=== PATIENT | female | born 1995 ===

== ENCOUNTER → 2018-07-10 | Outpatient (CLI) | payer BC ==
[~2018-07-10] MED LIST: ETHI1TAB16 PO; NORG1TAB98 PO
== END ==
LOC: LAB 14:52
PROVIDERS: ATTEND Student in an Organized Health Care Education/Training Program
DX: N89.8 Other specified noninflammatory disorders of vagina (principal)
CPT/HCPCS: 87210; 87491; 87591

== ENCOUNTER 2018-08-24 17:20 | Emergency (ER) | payer BC ==
[~2018-08-24 17:20] MED LIST changes: +METR500T54 PO
[2018-08-24] MEDS ORDERED: ETHI1TAB49 (17:36)
--- NOTE | 2018-08-24 17:41 | ER Report ---
History and Physical Time Seen By MD: 17:38 Hx. of Stated Complaint: patient reports migrane symptoms up to an including loss of vision, nausea, and one episode of emesis. she also reports recent weight loss HPI/ROS CHIEF COMPLAINT: Headache HISTORY OF PRESENT ILLNESS: This is a 23-year-old female presents to the emerg ency department for a headache. Patient states that around 12 today she developed a left-sided headache, worst headache she's ever had, did cause nausea no vomiting. She also had some loss of vision briefly on the right side the visual changes have resolved, she does continue to have intermittent nausea. She states she had one "migraine headache" when she was in high school however nothing since then. No recent injuries. No fevers or chills. No chest pain or shortness of breath. No rashes. REVIEW OF SYSTEMS: Constitutional: No fever, no chills. Eyes: As above. ENT: No sore throat. Cardiovascular: No chest pain, no palpitations. Respiratory: No cough, no shortness of breath. Gastrointestinal: No abdominal pain, no vomiting. Genitourinary: No hematuria. Musculoskeletal: No back pain. Skin: No rashes. Neurological: As above. Allergies: Coded Allergies: cefprozil (Unverified Allergy, Unknown, 06/21/18) hives Home Meds Reported Medications Ethinyl Estradiol/Drospirenone (LORYNA 3 MG-0.02 MG TABLET) 1 Each Tablet 08/24/18 Discontinued Reported Medications Norgestimate-Ethinyl Estradiol (TRINESSA) 1 Each Tablet, 1 TAB PO QDAY 06/21/18 Discontinued Scripts Metronidazole (METRONIDAZOLE) 500 Mg Tablet, 500 MG PO BID for 7 Days, #14 TAB 0 Refills Prov:DARCIE COOPER DO 07/15/18 Ethinyl Estradiol/Drospirenone (GIANVI 3 MG-0.02 MG TABLET) 1 Each Tablet, 1 EACH PO DAILY for 30 Days, #1 PACK 12 Refills Prov:DARCIE COOPER DO 07/10/18 Past Medical/Surgical History The patient has a past medical surgical history of "1 migraine headache apparently 7 years ago". Reviewed Nurses Notes: Yes Smoking Status: Never Smoker Hx Substance Use Disorder: No Hx Alcohol Use: Yes Constitutional Vital Sign - Last 24 Hours 08/24/18 08/24/18 08/24/1808/24/18 17:28 17:29 17:50 18:20 Temp 98.5 Pulse 72 76 107 Resp 20 B/P (MAP) 134/96 134/96 (109) Pulse Ox 99 99 97 O2 Delivery Room Air 08/24/18 08/24/18 18:27 18:30 B/P (MAP) 110/72 (85) 110/74 (86) Physical Exam General Appearance: The patient is alert, has no immediate need for airway protection and no signs of toxicity. Eyes: Pupils equal and round no pallor or injection. EOMs intact. No nystagmus. ENT, Mouth: Mucous membranes are moist. Respiratory: There are no retractions, lungs are clear to auscultation. Cardiovascular: Regular rate and rhythm, no murmurs, clicks or rubs. Gastrointestinal: Abdomen is soft and non tender, no masses, bowel sounds normal. Neurological: Alert and oriented 4. Moving all extremities. Following all commands. No focal neuro deficits. Sensation intact. Skin: Warm and dry, no rashes. Musculoskeletal: Neck is supple non tender. Extremities are nontender, nonswollen and have full range of motion. DIFFERENTIAL DIAGNOSIS: After history and physical exam differential diagnosis was considered for headache including but not limited to subarachnoid hemorrhage, migraine headache, tension headache and infectious causes such as meningitis, pharyngitis and sinusitis. Medical Decision Making Data Points Result Diagram: 08/24/18 1824 08/24/18 1824 Laboratory Hematology Test 08/24/18 18:24 08/24/18 18:52 Red Blood Count 5.24 M/uL (4.17-5.56) Mean Corpuscular Volume 83.4 fL (80.0-96.0) Mean Corpuscular Hemoglobin 28.9 pg (26.0-33.0) Mean Corpuscular Hemoglobin Concent 34.6 g/dL (32.0-36.0) Red Cell Distribution Width 12.9 % (11.5-14.5) Mean Platelet Volume 8.3 fL (7.2-11.1) Neutrophils (%) (Auto) 75.8 % (39.4-72.5) Lymphocytes (%) (Auto) 18.4 % (17.6-49.6) Monocytes (%) (Auto) 4.8 % (4.1-12.4) Eosinophils (%) (Auto) 0.8 % (0.4-6.7) Basophils (%) (Auto) 0.2 % (0.3-1.4) Nucleated RBC Relative Count (auto) 0.0 /100WBC Neutrophils # (Auto) 10.3 K/uL (2.0-7.4) Lymphocytes # (Auto) 2.5 K/uL (1.3-3.6) Monocytes # (Auto) 0.7 K/uL (0.3-1.0) Eosinophils # (Auto) 0.1 K/uL (0.0-0.5) Basophils # (Auto) 0.0 K/uL (0.0-0.1) Nucleated RBC Absolute Count (auto) 0.00 K/uL Sodium Level 138 mmol/L (137-145) Potassium Level 3.8 mmol/L (3.5-5.0) Chloride Level 103 mmol/L (98-107) Carbon Dioxide Level 23 mmol/L (22-31) Blood Urea Nitrogen 15 mg/dl (7-18) Creatinine 0.80 mg/dl (0.52-1.04) Glomerular Filtration Rate Calc > 60.0 Random Glucose 84 mg/dl (75-110) Calcium Level 10.4 mg/dl (8.4-10.2) Total Bilirubin 0.4 mg/dl (0.2-1.3) Aspartate Amino Transf (AST/SGOT) 33 U/L (0-35) Alanine Aminotransferase (ALT/SGPT) 37 U/L (0-56) Alkaline Phosphatase 64 U/L (0-126) Total Protein 8.3 g/dl (6.3-8.2) Albumin 4.7 g/dl (3.5-5.0) Urine HCG, Qualitative Negative (NEGATIVE) Chemistry Test 08/24/18 18:24 08/24/18 18:52 White Blood Count 13.6 k/uL (4.5-11.0) Red Blood Count 5.24 M/uL (4.17-5.56) Hemoglobin 15.1 g/dL (12.0-16.0) Hematocrit 43.7 % (34.0-47.0) Mean Corpuscular Volume 83.4 fL (80.0-96.0) Mean Corpuscular Hemoglobin 28.9 pg (26.0-33.0) Mean Corpuscular Hemoglobin Concent 34.6 g/dL (32.0-36.0) Red Cell Distribution Width 12.9 % (11.5-14.5) Platelet Count 302 K/uL (150-450) Mean Platelet Volume 8.3 fL (7.2-11.1) Neutrophils (%) (Auto) 75.8 % (39.4-72.5) Lymphocytes (%) (Auto) 18.4 % (17.6-49.6) Monocytes (%) (Auto) 4.8 % (4.1-12.4) Eosinophils (%) (Auto) 0.8 % (0.4-6.7) Basophils (%) (Auto) 0.2 % (0.3-1.4) Nucleated RBC Relative Count (auto) 0.0 /100WBC Neutrophils # (Auto) 10.3 K/uL (2.0-7.4) Lymphocytes # (Auto) 2.5 K/uL (1.3-3.6) Monocytes # (Auto) 0.7 K/uL (0.3-1.0) Eosinophils # (Auto) 0.1 K/uL (0.0-0.5) Basophils # (Auto) 0.0 K/uL (0.0-0.1) Nucleated RBC Absolute Count (auto) 0.00 K/uL Glomerular Filtration Rate Calc > 60.0 Calcium Level 10.4 mg/dl (8.4-10.2) Total Bilirubin 0.4 mg/dl (0.2-1.3) Aspartate Amino Transf (AST/SGOT) 33 U/L (0-35) Alanine Aminotransferase (ALT/SGPT) 37 U/L (0-56) Alkaline Phosphatase 64 U/L (0-126) Total Protein 8.3 g/dl (6.3-8.2) Albumin 4.7 g/dl (3.5-5.0) Urine HCG, Qualitative Negative (NEGATIVE) Urinalysis Test 08/24/18 18:52 Urine HCG, Qualitative Negative (NEGATIVE) EKG/Imaging Imaging HISTORY: Headache. TECHNIQUE: Axial CT images of the head were obtained from the vertex to the skull base without IV contrast, with coronal and sagittal 2D reconstructed images. One of the following dose optimization techniques was utilized in the performance of this exam: Automated exposure control; adjustment of the mA and/or kV according to the patient's size; or use of an iterative reconstruction technique. Specific details can be referenced in the facility's radiology CT exam operational policy. COMPARISON: None. FINDINGS: The intracranial contents are unremarkable. No CT evidence of intracranial hemorrhage, mass lesion, or acute infarct. No midline shift or extra-axial fluid collections. Hall-white differentiation is maintained. The calvarium is intact. Moderate mucosal thickening in the left sphenoid sinus. The visualized paranasal sinuses and mastoid air cells are otherwise unopacified. IMPRESSION: 1. No CT evidence of acute intracranial pathology. 2. Inflammatory sinus disease in the left sphenoid sinus with moderate mucosal thickening. Report Dictated By: Hernan Ashton MD at 08/24/2018 7:19 PM Report E-Signed By: Hernan Ashton MD at 08/24/2018 7:23 PM [id number] ED Course/Re-evaluation Clinical Indication for ER IV: Hydration, IV Access ED Course The patient was admitted to room. History physical obtained. Differential diagnoses were considered. An IV was started. A CBC, CMP were obtained. A 1 L normal saline bolus was given. A CT of the brain was obtained. 5 mg IV Decadron, 6.25 mg IV Phenergan, 25 mg IV Benadryl and 4 mg IV Zofran were given. Patient did have moderate relief of her symptoms. Lab studies unremarkable. CT of the brain was negative for any acute abnormalities, left-sided sinus disease noted on the CT. I did review the imaging results and laboratory results with the patient. I did tell the patient that there her headache is likely caused from her continued sinus disease. I did recommend following up with your nose and throat specialist, I also recommended taking Claritin or Zyrtec to help with her seasonal allergies and Flonase to help with the sinus congestion. The patient expressed understanding and was discharged home. The patient was in agreement with this plan of care. Decision to Disposition Date: Aug 24, 2018 Decision to Disposition Time: 19:43 Depart Departure Latest Vital Signs Vital Signs Date Time Temp Pulse Resp B/P (MAP) Pulse Ox O2 Delivery O2 Flow Rate FiO2 08/24/18 18:30 110/74 (86) 08/24/18 18:20 107 97 08/24/18 17:28 98.5 20 Room Air Impression: Primary Impression: Headache Additional Impression: Sinus disease Condition: Improved Disposition: HOME OR SELF-CARE Referrals: DARCIE COOPER DO (PCP) Patient Instructions: Acute Headache (ED), Sinusitis (ED) Additional Instructions: There were no concerning findings on your CT today. No concerning with your blood work today. The CT did show sinus inflammation. For the sinuses I would recommend Flonase, 1-2 sprays in each nostril twice a day for the next 3-5 days. I would also recommend Claritin or Zyrtec for the next 7 days to help with the sinus pain, which is likely causing your headache. Drink plenty of water. Get plenty of rest. Return to the ED for any other concerns or worsening symptoms. Problem Qualifiers Primary Impression: Headache Headache type: unspecified Headache chronicity pattern: acute headache Intractability: not intractable Qualified Codes: R51 - Headache SANYA KEATING CLOTH SHEARER-BC Aug 24, 2018 17:41
[2018-08-24] MEDS ORDERED: DEXAMETHASONE SOD PHOS 10MG/ML IVP ONE (17:55)
[2018-08-24] MEDS ORDERED: diphenhydrAMINE 50 MG/ML VIAL IVP ONE (17:55)
[2018-08-24] MEDS ORDERED: PROMETHAZINE 25 MG/ML 1 ML AMP IVP ONE (17:55)
[2018-08-24] MEDS ORDERED: ONDANSETRON 4 MG/2 ML VIAL IVP ONE (17:55)
[2018-08-24] MEDS ORDERED: NS(*) 0.9% 1000 ML BAG 1,000 ML IV ONE (18:10)
[2018-08-24 18:31] LABS: PLATELET COUNT, AUTOMATED 302 K/uL (150-450)
--- NOTE | 2018-08-24 19:27 | RADIOLOGY IMAGING REPORT ---
FACILITY: [facility] PATIENT NAME: Rachael Sorto : 1995 MR: [id number] V: [id number] EXAM DATE: ORDERING PHYSICIAN: SANYA KEATING TECHNOLOGIST: Location: [facility] [place] Patient: Rachael Sorto : 1995 Visit/Account:[id number] Date of Sevice: 08/24/2018 EXAMINATION: CT head without IV contrast HISTORY: Headache. TECHNIQUE: Axial CT images of the head were obtained from the vertex to the skull base without IV c ontrast, with coronal and sagittal 2D reconstructed images. One of the following dose optimization techniques was utilized in the performance of this exam: Autom ated exposure control; adjustment of the mA and/or kV according to the patient's size; or use of an i terative reconstruction technique. Specific details can be referenced in the facility's radiology C T exam operational policy. COMPARISON: None. FINDINGS: The intracranial contents are unremarkable. No CT evidence of intracranial hemorrhage, mass lesion, or acute infarct. No midline shift or extra-axial fluid collections. Hall-white differentiation is maintained. The calvarium is intact. Moderate mucosal thickening in the left sphenoid sinus. The visualized para nasal sinuses and mastoid air cells are otherwise unopacified. IMPRESSION: 1. No CT evidence of acute intracranial pathology. 2. Inflammatory sinus disease in the left sphenoid sinus with moderate mucosal thickening. Report Dictated By: Hernan Ashton MD at 08/24/2018 7:19 PM Report E-Signed By: Hernan Ashton MD at 08/24/2018 7:23 PM [id number]
[2018-08-24 19:51] VITALS: BP 99/61
== END 2018-08-24 19:55 | disposition home or self-care (01) ==
LOC: ER 17:22
DX: R51 Headache (principal); J32.9 Chronic sinusitis, unspecified
CPT/HCPCS: 70450; 81025; 85025; 96361; 96374; 96375; 99284; J1100; J1200; J2405; J2550; J7030; 82040; 82247; 82310; 82374; 82435; 82565; 82947; 84075; 84132; 84155; 84295; 84450; 84460; 84520

== ENCOUNTER → 2019-04-03 | Outpatient (CLI) | payer BC ==
[~2019-04-03] MED LIST changes: +ETHI1TAB49; +METR500T15 PO; -METR500T54 PO
== END ==
LOC: LAB 09:41
PROVIDERS: ATTEND Physician Assistant Medical
DX: R19.7 Diarrhea, unspecified (principal)
CPT/HCPCS: 36415; 82784; 83516; 84443; 85027; 86140